=== PATIENT | male | born 1945 | race Hispanic/Latino ===

== ENCOUNTER 2018-08-04 10:58 | Emergency (ER) | payer MEDICARE ==
[2018-08-04 11:33] LABS: CREATININE 1.1 mg/dL (0.5-1.5); POTASSIUM 3.6 mmol/L (3.5-5.1)
[2018-08-04 11:39] LABS: ALBUMIN 4.6 g/dL (3.5-5.0); BILIRUBIN,TOTAL 0.7 mg/dL (0.2-1.0); TOTAL PROTEIN, SERUM 7.9 g/dL (6.0-8.3)
[2018-08-04 11:40] LABS: INR 0.92 (0.85-1.15); PARTIAL THROMBOPLASTIN TIME 28.1 SEC (26.3-35.5); PROTHROMBIN TIME 9.7 SEC (9.6-11.6)
[2018-08-04 11:44] LABS: CREATINE KINASE, TOTAL 40 U/L (21-232); MYOGLOBIN 47 ng/mL (10-92); TROPONIN I < 0.04 ng/mL (0.00-0.06)
[2018-08-04 11:47] LABS: BASOPHILS % (AUTO) 0.3 % (0.0-5.0); EOSINOPHILS % (AUTO) 0.3 % (0.0-8.0); HEMATOCRIT 46.5 % (42-54); LYMPHOCYTES % (AUTO) 16.5 % (21.0-51.0); MEAN CORPUSCULAR HEMOGLOBIN 30.8 pg (27.0-33.0); MEAN CORPUSCULAR VOLUME 90.4 fL (79-99); MONOCYTES % (AUTO) 6.5 % (3.0-13.0); NEUTROPHILS % (AUTO) 76.4 % (40.0-77.0); PLATELET COUNT (AUTO) 190 K/uL (130-400); RED BLOOD CELL COUNT(AUTO) 5.15 MIL/uL (4.50-6.20); RED CELL DISTRIBUTION WIDTH 13.4 % (11.0-15.5); WHITE BLOOD COUNT (AUTO) 8.4 K/uL (4.8-10.8)
== END 2018-08-04 12:52 | disposition home or self-care (01) ==
LOC: EDH 10:58
DX: R07.89 Other chest pain (principal); E78.5 Hyperlipidemia, unspecified; I10 Essential (primary) hypertension; Z87.891 Personal history of nicotine dependence; Z88.2 Allergy status to sulfonamides
CPT/HCPCS: 36415; 71045; 80053; 82550; 83874; 84484; 85025; 85610; 85730; 93005

== ENCOUNTER 2019-02-05 02:16 | Emergency (ER) | payer MEDICARE ==
[2019-02-05 03:04] LABS: BASOPHILS % (AUTO) 0.4 % (0.0-5.0); EOSINOPHILS % (AUTO) 2.5 % (0.0-8.0); HEMATOCRIT 38.6 % (42-54); LYMPHOCYTES % (AUTO) 33.1 % (21.0-51.0); MEAN CORPUSCULAR HEMOGLOBIN 31.3 pg (27.0-33.0); MEAN CORPUSCULAR HGB CONC 34.3 g/dL (32.0-36.0); MEAN CORPUSCULAR VOLUME 91.4 fL (79-99); MONOCYTES % (AUTO) 9.4 % (3.0-13.0); NEUTROPHILS % (AUTO) 54.6 % (40.0-77.0); PLATELET COUNT (AUTO) 169 K/uL (130-400); RED BLOOD CELL COUNT(AUTO) 4.22 MIL/uL (4.50-6.20); RED CELL DISTRIBUTION WIDTH 12.5 % (11.0-15.5); WHITE BLOOD COUNT (AUTO) 5.6 K/uL (4.8-10.8)
[2019-02-05 03:15] LABS: CREATININE 0.9 mg/dL (0.5-1.5); POTASSIUM 3.5 mmol/L (3.5-5.1)
[2019-02-05 03:19] LABS: ALBUMIN 3.9 g/dL (3.5-5.0); BILIRUBIN,TOTAL 0.4 mg/dL (0.2-1.0); TOTAL PROTEIN, SERUM 6.9 g/dL (6.0-8.3)
[2019-02-05 03:29] LABS: CREATINE KINASE, TOTAL 39 U/L (21-232); MYOGLOBIN 22 ng/mL (10-92); TROPONIN I < 0.04 ng/mL (0.00-0.06)
[2019-02-05] MEDS ORDERED: MECLIZINE HCL 25 MG TABLET ONE (03:32)
[2019-02-05] MEDS ORDERED: SODIUM CHLORIDE 0.9% 1000ML 1,000 ML IV ONE (03:32)
== END 2019-02-05 05:47 | disposition home or self-care (01) ==
LOC: EDH 02:16
DX: H81.10 Benign paroxysmal vertigo, unspecified ear (principal); I10 Essential (primary) hypertension; E11.9 Type 2 diabetes mellitus without complications; I25.10 Atherosclerotic heart disease of native coronary artery without angina pectoris; E78.5 Hyperlipidemia, unspecified; Z88.2 Allergy status to sulfonamides; Z90.49 Acquired absence of other specified parts of digestive tract
CPT/HCPCS: 36415; 80053; 82550; 83874; 84484; 85025; 93005; 96360; 96361; 99285; J7030

== ENCOUNTER 2019-11-22 10:37 | Observation (INO) | payer MEDICARE ==
[~2019-11-22] VITALS: Ht 172.7 cm; Wt 65.8 kg
[2019-11-22] MEDS ORDERED: ASPIRIN 325 MG TABLET ONE (10:56)
[2019-11-22 11:22] LABS: CREATININE 0.9 mg/dL (0.5-1.5); POTASSIUM 3.8 mmol/L (3.5-5.1)
[2019-11-22 11:23] LABS: BASOPHILS % (AUTO) 0.3 % (0.0-5.0); EOSINOPHILS % (AUTO) 1.4 % (0.0-8.0); HEMATOCRIT 39.7 % (42-54); LYMPHOCYTES % (AUTO) 23.8 % (21.0-51.0); MEAN CORPUSCULAR HEMOGLOBIN 30.2 pg (27.0-33.0); MEAN CORPUSCULAR HGB CONC 34.3 g/dL (32.0-36.0); MONOCYTES % (AUTO) 9.1 % (3.0-13.0); NEUTROPHILS % (AUTO) 65.1 % (40.0-77.0); PLATELET COUNT (AUTO) 207 K/uL (130-400); RED BLOOD CELL COUNT(AUTO) 4.51 MIL/uL (4.50-6.20); RED CELL DISTRIBUTION WIDTH 12.4 % (11.0-15.5); WHITE BLOOD COUNT (AUTO) 6.3 K/uL (4.8-10.8)
[2019-11-22 11:27] LABS: ALBUMIN 4.4 g/dL (3.5-5.0); BILIRUBIN,TOTAL 0.7 mg/dL (0.2-1.0); TOTAL PROTEIN, SERUM 7.5 g/dL (6.0-8.3)
[2019-11-22 11:33] LABS: B-TYPE NATRIURETIC PEPTIDE 15 pg/mL (0-100)
[2019-11-22 11:52] LABS: APPEARANCE,URINE CLEAR (CLEAR); BILIRUBIN,URINE NEGATIVE (NEGATIVE); COLOR,URINE YELLOW (YELLOW); GLUCOSE, URINE (UA) 500 mg/dL (NEGATIVE); KETONES,URINE NEGATIVE (NEGATIVE); LEUKOCYTE ESTERASE ,URINE NEGATIVE (NEGATIVE); NITRATE,URINE NEGATIVE (NEGATIVE); OCCULT BLOOD,URINE NEGATIVE (NEGATIVE); PROTEIN,URINE NEGATIVE (NEGATIVE); UROBILINOGEN,URINE 0.2 mg/dL (0.2-1.0)
[2019-11-22 12:49] LABS: BACTERIA,URINE Rare /HPF (None Seen); RBC,URINE None Seen /HPF (0-1); SQUAMOUS EPITHELIAL CELL,UR None Seen /HPF (0-2); WBC,URINE None Seen /HPF (0-1)
[2019-11-22 13:18] LABS: INR 0.88 (0.85-1.15); PARTIAL THROMBOPLASTIN TIME 28.3 SEC (26.3-35.5); PROTHROMBIN TIME 9.6 SEC (9.6-11.6)
[2019-11-22] MEDS ORDERED: NITROGLYCERIN 1GM/1 INCH PACKET TD ONE (14:36)
[2019-11-22 20:19] LABS: CREATINE KINASE, TOTAL 72 U/L (21-232); MYOGLOBIN 26 ng/mL (10-92); TROPONIN I < 0.04 ng/mL (0.00-0.06)
[2019-11-22 22:34] VITALS: BP 147/57
[2019-11-23 05:39] LABS: HEMATOCRIT 35.5 % (42-54); MEAN CORPUSCULAR HEMOGLOBIN 30.4 pg (27.0-33.0); MEAN CORPUSCULAR HGB CONC 34.4 g/dL (32.0-36.0); MEAN CORPUSCULAR VOLUME 88.5 fL (79-99); RED BLOOD CELL COUNT(AUTO) 4.01 MIL/uL (4.50-6.20); RED CELL DISTRIBUTION WIDTH 12.3 % (11.0-15.5); WHITE BLOOD COUNT (AUTO) 5.1 K/uL (4.8-10.8)
[2019-11-23 06:10] LABS: ALBUMIN 3.7 g/dL (3.5-5.0); BILIRUBIN,TOTAL 0.5 mg/dL (0.2-1.0); CREATININE 0.9 mg/dL (0.5-1.5); POTASSIUM 3.8 mmol/L (3.5-5.1); TOTAL PROTEIN, SERUM 6.6 g/dL (6.0-8.3)
[2019-11-23 06:38] VITALS: BP 138/63
[2019-11-23] MEDS ORDERED: ASPIRIN 81MG TAB.CHEW PO SCH (09:00)
[2019-11-23 11:46] VITALS: BP 142/59
[2019-11-23 16:00] VITALS: BP 137/56
--- NOTE | 2019-11-23 17:03 | NUR ---
cm note met with patient and states resides at home with spouse, independent with adls and ambulation. no dme. no services. dc plan is back home at [place]. no dc needs. Addendum: 11/23/19 at 1705 by TRISTIAN FUNG CM Amended: Links added.
--- NOTE | 2019-11-23 19:24 | NUR ---
Discharge education provided to pt in room. Emphasis on dx of chest pain, s/s to monitor for, when to seek emergency care and when to dial 911. Pt is to follow up with PCP Dr. Brady on next business day, and with Dr. Johnson in 2 weeks. Pt understands he must call to schedule appointments. Pt was instructed to continue all previous home medications. No new rx. PIV removed, tip intact. Dressed with sterile 2x2 and tape after hemostasis achieved. Telemetry discontinued. Pt dressed and awaiting arrival of family for transport home via private car. Pt to call when ready. Addendum: 11/23/19 at 1943 by HALEY LEYVA RN RN Pt escorted to [facility] by [facility] staff for transport home via private car. Pt in stable condition at time of discharge.
[2019-11-23] MEDS ORDERED: SITA1TAB6 PO (19:31)
[2019-11-23] MEDS ORDERED: LISI-613 PO (19:31)
[2019-11-23] MEDS ORDERED: AEC81 PO (19:32)
[2019-11-23] MEDS ORDERED: SIMV40TA59 PO (19:32)
[2019-11-23] MEDS ORDERED: GLIP10TA9 PO (19:33)
[2019-11-23] MEDS ORDERED: FAMO-136 PO (19:33)
[2019-11-23] MEDS ORDERED: PANT40TA25 PO (19:33)
== END 2019-11-23 19:35 | disposition home or self-care (01) ==
LOC: EDH 10:37 → EDHIP 14:27 → 3AH 21:06
PROVIDERS: ADMIT Internal Medicine; ATTEND Internal Medicine
DX: R07.89 Other chest pain (principal); I25.10 Atherosclerotic heart disease of native coronary artery without angina pectoris; I10 Essential (primary) hypertension; E78.5 Hyperlipidemia, unspecified; E11.9 Type 2 diabetes mellitus without complications; Z87.891 Personal history of nicotine dependence
CPT/HCPCS: 36415 ×2; 71045; 80053 ×2; 81001; 82550 ×2; 82948 ×4; 83874; 83880; 84484 ×3; 85025; 85027; 85610; 85730; 93005; 99291; G0378 ×11

== ENCOUNTER 2022-07-04 07:56 | Emergency (ER) | payer MEDICARE ==
[~2022-07-04] VITALS: Ht 175.3 cm; Wt 69.4 kg
[~2022-07-04 07:56] MED LIST: AEC81 PO; FAMO-136 PO; GLIP10TA9 PO; LISI20TA24 PO; PANT40TA55 PO; SIMV40TA59 PO; SITA1TAB6 PO
[2022-07-04] MEDS ORDERED: MECLIZINE HCL 25 MG TABLET PO STA (08:08)
[2022-07-04] MEDS ORDERED: LACTATED RINGERS 1000ML 1,000 ML IV ONE (08:30)
[2022-07-04 08:32] LABS: BASOPHILS % (AUTO) 0.4 % (0.0-5.0); EOSINOPHILS % (AUTO) 2.2 % (0.0-8.0); HEMATOCRIT 34.7 % (42-54); LYMPHOCYTES % (AUTO) 31.1 % (21.0-51.0); MEAN CORPUSCULAR HEMOGLOBIN 30.6 pg (27.0-33.0); MEAN CORPUSCULAR VOLUME 89.9 fL (79-99); MONOCYTES % (AUTO) 9.8 % (3.0-13.0); NEUTROPHILS % (AUTO) 56.3 % (40.0-77.0); PLATELET COUNT (AUTO) 174 K/uL (130-400); RED BLOOD CELL COUNT(AUTO) 3.86 MIL/uL (4.50-6.20); RED CELL DISTRIBUTION WIDTH 13.2 % (11.0-15.5); WHITE BLOOD COUNT (AUTO) 4.6 K/uL (4.8-10.8)
[2022-07-04 08:37] LABS: POTASSIUM 3.7 mmol/L (3.5-5.1)
[2022-07-04 08:42] LABS: ALBUMIN 3.9 g/dL (3.5-5.0); TOTAL PROTEIN, SERUM 6.9 g/dL (6.0-8.3)
[2022-07-04 08:48] LABS: B-TYPE NATRIURETIC PEPTIDE 19 pg/mL (0-100)
[2022-07-04 10:53] LABS: APPEARANCE,URINE CLEAR (CLEAR); BILIRUBIN,URINE NEGATIVE (NEGATIVE); COLOR,URINE LIGHT-YELLOW (YELLOW); GLUCOSE, URINE (UA) NEGATIVE (NEGATIVE); KETONES,URINE 10 mg/dL (NEGATIVE); LEUKOCYTE ESTERASE ,URINE NEGATIVE Leu/uL (NEGATIVE); NITRATE,URINE NEGATIVE (NEGATIVE); OCCULT BLOOD,URINE NEGATIVE (NEGATIVE); PROTEIN,URINE NEGATIVE (NEGATIVE); UROBILINOGEN,URINE 0.2 mg/dL (0.2-1.0)
[2022-07-04 10:55] LABS: RBC,URINE 0-1 /HPF (0-1); WBC,URINE 0-1 /HPF (0-1)
[2022-07-04] MEDS ORDERED: MECL-262 PO (11:41)
[2022-07-04 13:04] VITALS: BP 123/55
== END 2022-07-04 13:06 | disposition home or self-care (01) ==
LOC: EDH 07:56
DX: E86.0 Dehydration (principal); R42 Dizziness and giddiness; E11.9 Type 2 diabetes mellitus without complications; E78.00 Pure hypercholesterolemia, unspecified; I10 Essential (primary) hypertension; Z79.82 Long term (current) use of aspirin; Z79.899 Other long term (current) drug therapy; Z98.890 Other specified postprocedural states; Z88.2 Allergy status to sulfonamides; Z20.822 Contact with and (suspected) exposure to COVID-19
CPT/HCPCS: 99285; 82550; 84484; 80053; 83880; 85025; 82948; 81001; 36415; 87635; 71045; 70450; 96360; 96361; 93005; C9803; J7120

== ENCOUNTER 2023-01-04 16:57 | Emergency (ER) | payer MEDICARE ==
[~2023-01-04] VITALS: Ht 172.7 cm; Wt 68.0 kg
[~2023-01-04 16:57] MED LIST changes: +MECL-262 PO
[2023-01-04 17:19] LABS: BASOPHILS % (AUTO) 0.4 % (0.0-5.0); EOSINOPHILS % (AUTO) 1.9 % (0.0-8.0); HEMATOCRIT 34.3 % (42-54); LYMPHOCYTES % (AUTO) 23.8 % (21.0-51.0); MEAN CORPUSCULAR HEMOGLOBIN 30.6 pg (27.0-33.0); MEAN CORPUSCULAR HGB CONC 33.2 g/dL (32.0-36.0); MONOCYTES % (AUTO) 8.6 % (3.0-13.0); NEUTROPHILS % (AUTO) 64.9 % (40.0-77.0); PLATELET COUNT (AUTO) 148 K/uL (130-400); RED BLOOD CELL COUNT(AUTO) 3.73 MIL/uL (4.50-6.20); RED CELL DISTRIBUTION WIDTH 13.1 % (11.0-15.5); WHITE BLOOD COUNT (AUTO) 5.7 K/uL (4.8-10.8)
[2023-01-04 17:33] LABS: POTASSIUM 4.2 mmol/L (3.5-5.1)
[2023-01-04 17:43] LABS: ALBUMIN 4.3 g/dL (3.5-5.0); TOTAL PROTEIN, SERUM 7.4 g/dL (6.0-8.3)
[2023-01-04 20:16] LABS: APPEARANCE,URINE CLEAR (CLEAR); BILIRUBIN,URINE NEGATIVE (NEGATIVE); COLOR,URINE COLORLESS (YELLOW); GLUCOSE, URINE (UA) NEGATIVE (NEGATIVE); KETONES,URINE NEGATIVE (NEGATIVE); LEUKOCYTE ESTERASE ,URINE NEGATIVE Leu/uL (NEGATIVE); NITRATE,URINE NEGATIVE (NEGATIVE); OCCULT BLOOD,URINE NEGATIVE (NEGATIVE); PH,URINE 5.5 (5.0-8.0); PROTEIN,URINE NEGATIVE (NEGATIVE); UROBILINOGEN,URINE 0.2 mg/dL (0.2-1.0)
[2023-01-04 20:25] LABS: WBC,URINE 0-1 /HPF (0-1)
[2023-01-04 21:22] VITALS: BP 142/64
== END 2023-01-04 21:33 | disposition home or self-care (01) ==
LOC: EDH 16:57
DX: R55 Syncope and collapse (principal); E11.9 Type 2 diabetes mellitus without complications; E78.00 Pure hypercholesterolemia, unspecified; I10 Essential (primary) hypertension; Z79.82 Long term (current) use of aspirin; Z79.84 Long term (current) use of oral hypoglycemic drugs; Z88.2 Allergy status to sulfonamides; Z95.5 Presence of coronary angioplasty implant and graft
CPT/HCPCS: 36415; 71045; 80053; 81001; 84484; 85025; 93005

== ENCOUNTER 2025-04-06 17:56 | Emergency (ER) | payer MEDICARE, OTHER ==
[~2025-04-06] VITALS: Ht 172.7 cm; Wt 66.2 kg
[~2025-04-06 17:56] MED LIST changes: +GLIP10TA16 PO; -GLIP10TA9 PO
--- NOTE | 2025-04-06 18:12 | ERN ---
ED Note History of Present Illness Stated Complaint: DIZZY, ELEVATED BP Chief Complaint: Dizzy/Light Headed Time Seen by MD: 18:01 Dictation: PATIENT IS A 79-YEAR-OLD MALE COMING IN TODAY WITH HIS COMPLAINTS OF SITTING AND WATCHING TV AND HE HAD A SUDDEN ONSET OF DIZZINESS IN HIS BLOOD PRESSURE WENT UP AND HE FELT VERY STRANGE. NO NAUSEA VOMITING NO HEADACHE. HE STATES HE FELT LIKE THE ROOM WAS SPINNING, HIS TOOK HER BLOOD PRESSURE CUFF AND CHECKED HIM. HIS BLOOD PRESSURE WAS 208 SYSTOLIC. HE STATES COMING TO THE EMERGENCY ROOM, THE ONLY TIME HE FEELS IT IS WHEN HE GOES FROM A SITTING TO A STANDING POSITION. IN THE TRIAGE ROOM HE COMPLAINED OF THE SAME SENSATION WHEN HE STOOD UP. NIH IS 0 GAIT IS STEADY. STATES THIS IS HAPPENED IN THE PAST IN HIS DOCTOR TOLD HIM TO COOL GO TO THE EMERGENCY ROOM IF IT EVER HAPPENED AGAIN. Allergies: Coded Allergies: Sulfa (Sulfonamide Antibiotics) (Verified Allergy, Unknown, 11/22/19) Home Meds Active Scripts Meclizine HCl (Antivert) 25 Mg Tab.chew, 25 MG PO BID for 4 Days, #8 TAB.CHEW Prov:VENKAT ORR MD 07/04/22 Reported Medications Glipizide (Glipizide) 10 Mg Tablet, 10 MG PO BID, TAB 11/23/19 Famotidine (Pepcid) 20 Mg Tablet, 20 MG PO AD PRN for DYSPEPSIA, TAB 11/23/19 Pantoprazole Sodium (Protonix) 40 Mg Ectab, 40 MG PO AD PRN for DYSPEPSIA, TAB.EC 11/23/19 Simvastatin (ZOCOR) 40 Mg Tablet, 40 MG PO HS, TAB 11/23/19 Aspirin (ASPIRIN 81 MG ECTAB) 81 Mg Ectab, 81 MG PO DAILY, TAB.EC 11/23/19 Lisinopril (Lisinopril) 20 Mg Tablet, 20 MG PO AM, TAB 11/23/19 Sitagliptin Phos/Metformin HCl (Janumet 50-1,000 mg Tablet) 1 Each Tablet, 1 EACH PO BID, TAB 11/23/19 Past Medical History Past Medical History: Diabetes-Type II, High Cholesterol, Heart Disease, Hypertension, Other Additional Past Medical Hx: VERTIGO Surgical History: None Surgical History Other: HEART STENT Social History: Negative, Lives with family RN Note Reviewed/Agreed w/PFSH: Yes Review of System Dictation CONSTITUTIONAL: NEGATIVE EXCEPT FOR HPI HEAD/FACE: NEGATIVE EXCEPT FOR HPI EENT: NEGATIVE EXCEPT FOR HPI RESPIRATORY: NEGATIVE EXCEPT FOR HPI GASTROINTESTINAL/ABDOMINAL: NEGATIVE EXCEPT FOR HPI GENITOURINARY: NEGATIVE EXCEPT FOR HPI MUSCULOSKELETAL: NEGATIVE EXCEPT FOR HPI INTEGUMENTARY: NEGATIVE EXCEPT FOR HPI NEUROLOGICAL/PSYCH: NEGATIVE EXCEPT FOR HPI DIZZINESS/VERTIGO HEMATOLOGIC/LYMPHATIC: NEGATIVE EXCEPT FOR HPI ALL SYSTEMS NEGATIVE, EXCEPT NOTED ABOVE. 13 POINT REVIEW OF SYSTEMS ASSESSED AND ALL NEGATIVE EXCEPT FOR ABOVE. Initial Vital Sign VS Vital Signs Date Time Temp Pulse Resp B/P (MAP) Pulse Ox O2 Delivery O2 Flow Rate FiO2 04/06/25 17:57 97.9 79 16 150/52 97 Room Air 0 Physical Exam Dictation VITAL SIGNS REVIEWED GENERAL APPEARANCE: ALERT, ORIENTED X 3, NO ACUTE DISTRESS, WELL DEVELOPED, NOURISHED. 0/10 PAIN HEAD AND FACE: NON-TRAUMATIC. EYES: PERRL, PINK CONJUNCTIVAS, EYELID NO TRAUMA, ANTERIOR CHAMBER WITH ARCUS SENILIS. EARS: PINNAS INTACT AND NO SIGNS OF TRAUMA OR ERYTHEMA EAR CANALS CLEAR AND NO DISCHARGE TM NO ERYTHEMA NOSE: NO DISCHARGE, NO BLEEDING. OROPHARYNX: MOUTH NORMAL, TONGUE PINK, PHARYNX CLEAR,NO ERYTHEMA, TONSILS NO EXUDATES, NO ABSCESSES NOTED, MUCOUS MEMBRANE MOIST NECK: SUPPLE, NON-TENDER, NO THYROMEGALY, NO MASSES, NO JVD, NO BRUITS BREAST:DEFERRED CHEST:NO TENDERNESS, NO CREPITUS, NO PARADOXICAL MOVEMENT, NO RETRACTIONS LUNGS:CLEAR, WELL-VENTILATED, SYMMETRIC, NO RALES, NO WHEEZING, NO RHONCHI, NO STRIDOR, GOOD BREATH SOUNDS BILATERALLY HEART: REGULAR RATE, REGULAR RHYTHM, NO MURMUR, NO GALLOPS VASCULAR: NO PERIPHERAL EDEMA, ABDOMEN: SOFT, POSITIVE BOWEL SOUNDS, NONDISTENDED, NO GUARDING, NONTENDER, NO REBOUND, NO MASSES NO HEPATOMEGALY, NO SPLENOMEGALY, NO COLE'S SIGN, NO HERNIAS. RECTAL: DEFERRED GENITAL: DEFERRED NEUROLOGICAL: NORMAL SPEECH, MOTOR FUNCTION INTACT, SENSORY FUNCTION INTACT NIH IS 0 MUSCULOSKELETAL: NECK NONTENDER, FULL RANGE OF MOTION, BACK NONTENDER, FULL RANGE OF MOTION, EXTREMITIES: NONTENDER, FULL RANGE OF MOTION SKIN: COLOR PINK, DRY, NO TURGOR, NO RASH, NO LACERATIONS, NO ABRASIONS, NO CONTUSIONS. LYMPHATIC: DEFERRED Results (Laboratory/Radiology) Laboratory/Radiology Laboratory Tests Test 04/06/25 18:25 White Blood Count 4.9 K/uL (4.8-10.8) Red Blood Count 3.66 MIL/uL (4.50-6.20) L Hemoglobin 11.2 g/dL (14.0-18.0) L Hematocrit 33.8 % (42-54) L Mean Corpuscular Volume 92.3 fL (79-99) Mean Corpuscular Hemoglobin 30.6 pg (27.0-33.0) Mean Corpuscular Hemoglobin Concent 33.1 g/dL (32.0-36.0) Red Cell Distribution Width 12.9 % (11.0-15.5) Platelet Count 166 K/uL (130-400) Mean Platelet Volume 10.2 fL (7.5-10.5) Immature Granulocyte % (Auto) 0.2 % (0-1) Neutrophils (%) (Auto) 62.5 % (40.0-77.0) Lymphocytes (%) (Auto) 26.5 % (21.0-51.0) Monocytes (%) (Auto) 8.4 % (3.0-13.0) Eosinophils (%) (Auto) 2.2 % (0.0-8.0) Basophils (%) (Auto) 0.2 % (0.0-5.0) Neutrophils # (Auto) 3.1 K/uL (1.8-7.7) Lymphocytes # (Auto) 1.3 K/uL (1.0-4.8) Monocytes # (Auto) 0.4 K/uL (0.1-1.0) Eosinophils # (Auto) 0.11 K/uL (0.00-0.70) Basophils # (Auto) 0.01 K/uL (0.00-0.20) Absolute Immature Granulocyte (auto 0.01 K/uL (0-1) Nucleated Red Blood Cells 0.0 % (0.0-0.19) Sodium Level 139 mmol/L (136-145) Potassium Level 4.3 mmol/L (3.5-5.1) Chloride Level 103 mmol/L (101-111) Carbon Dioxide Level 26 mmol/L (21-32) Blood Urea Nitrogen 19 mg/dL (7-18) H Creatinine 0.9 mg/dL (0.5-1.3) Glomerular Filtration Rate Calc 87 mL/min (>90) Random Glucose 84 mg/dL (70-105) Total Calcium 9.0 mg/dL (8.5-10.1) Magnesium Level 2.30 mg/dL (1.80-2.40) Troponin I High Sensitivity 25 ng/L (4-75) EXAM: CT Head Without IV contrast. CLINICAL HISTORY: ACUTE ONSET OF DIZZINESS APPROXIMATE1 HOUR PRIOR TO ARRIVAL TECHNIQUE: Axial computed tomography images of the head/brain without intravenous contrast. COMPARISON: None provided. 07/04/2022. FINDINGS: BRAIN: No acute bleed or infarct. Stable mild chronic ischemic and atrophic changes. VENTRICLES: No hydrocephalus. ORBITS: The orbits are unremarkable. SINUSES AND MASTOIDS: The paranasal sinuses and mastoid air cells are clear. BONES: No fracture. SOFT TISSUES: Unremarkable. IMPRESSION: No acute bleed or infarct. Stable mild chronic ischemic and atrophic changes. /[place] XR Chest, 1 View. CLINICAL HISTORY: 78-day-old male chest pain. COMPARISON: XR Chest 01/04/23 17:20 FINDINGS: LUNGS: The lungs are clear. No consolidation. PLEURAL SPACES: No pleural effusion or pneumothorax. HEART: The heart size is normal. BONES: No acute osseous abnormality. IMPRESSION: 1. No acute findings. 2. Similar to prior XR Chest 01/04/23 17:20 /[facility] Labs Reviewed?: Yes EKG: (+) NSR EKG Comment: EKG normal sinus rhythm/heart rate 75/axis normal/no ectopy ED Course ED Course Orders Procedure Category Date Status Time Orthostatic Vital CPOE 04/06/25 Transmitted Signs 18:09 Ct Head/Brain W/O CT 04/06/25 Resulted Contrast 18:09 Cbc With Differential LAB 04/06/25 Complete 18:09 Chest 1vw RAD 04/06/25 Resulted 18:09 12 Lead Ekg Tracing- EKG 04/06/25 Complete Technical 18:09 Magnesium LAB 04/06/25 Complete 18:09 Troponin I High LAB 04/06/25 Complete Sensitivity 18:09 Basic Metabolic Panel LAB 04/06/25 Complete 18:09 Vital Signs Date Time Temp Pulse Resp B/P (MAP) Pulse Ox O2 Delivery O2 Flow Rate FiO2 04/06/25 17:57 97.9 79 16 150/52 97 Room Air 0 2102/patient remains NIH of 0. Gait is steady to the triage to room were I discussed the findings to include CT, labs, EKG, troponin, chest x-ray. He is aware there no significant findings and does not wish to stay in the hospital. He states the dizziness is transient. He wishes to be referred to a neurologist for follow up. at bedside and all questions answered HEART Score Response (Comments) Value History: Low suspicion (0) 0 Age: > 65yrs (+2) 2 Risk Factors: 1-2 risk factors (+1) 1 Initial Troponin: Normal limit (0) 0 Total 3 Medical Decision Making MDM MDM: Differential diagnosis: Positional vertigo/labyrinthitis/CVA/ACS/arrhythmia/electrolyte imbalance/dehydration/pneumonia/anxiety Rationale: Tests considered and ordered secondary to shared decision making include: EKG/labs/radiology Previous outside records reviewed: Old ER visits. Risk of complication and/or morbidity or mortality of patient management: None Medications-Per medication reconciliation Need for hospitalization: Patient does not meet criteria for hospitalization. None Need for emergency major/minor surgery: No There are no social concerns with this patient. Prescription drug management none Prescriptions will include symptomatic care Patient's prior external medical records from other ER visits were reviewed by me as indicated. Prior testing and results from previous visits were reviewed. Prior tests were taken into account with medical decision making and resource utilization, independent historian/historians were used to obtain complete medical history. I independently interpreted the test that were performed, results were reviewed by me and considered findings on radiology if ordered. Medical management and examination interpretation discussions were had by me with other qualified healthcare professionals as indicated for the patient's care. DX & DISP Disposition: Discharge Departure Impression: Primary Impression: Dizziness Additional Impressions: Chronic anemia, Mild dehydration Condition: Stable Additional Instructions: Follow-up with primary care provider in 1 to 2 days. Take medications as directed here in the emergency room. Okay to continue home medications unless otherwise discussed during your visit in the emergency room today. Return to your nearest emergency room if symptoms worsen or if there is no improvement. Call 911 if you need immediate assistance. Take Tylenol or Motrin [id number] as needed and if no contraindications are present. Increase oral hydration. A wound culture or urine culture was ordered here in the emergency room department please follow-up with primary care provider and advise them to get repeat ports from our facility. If you had any Gilberto wrap/splints that were applied here, please do not remove them until you see your primary care or specialty. Increase your fluid intake. Follow up with neurologist in the next 1-2 days, call for an appointment. See your primary care doctor for referral if you have any difficulty getting into see a neurologist. Referrals: KARELY MUSA MD (PCP) GUNNAR THOMAS MD Time of Disposition: 21:05 I have reviewed the case, and I agree with, Diagnosis and Plan ESTEE CHRISTINA NP Apr 06, 2025 18:12
--- NOTE | 2025-04-06 18:23 | EKG ---
[facility] Test Date: 2025-04-06 Test Time: 18:17:22 Pat Name: PRIMO ORDONEZ Department: ED Room: Gender: M Delivery Table Operator: [id number] : 1945 Requested By: ESTEE CHRISTINA Order Number: [id number] Reading MD: Francheska Daly Measurements Intervals [place] Rate: 75 P: 72 CA: 176 QRS: 39 QRSD: 84 T: 63 QT: 351 QTc: 391 Interpretive Statements Sinus rhythm Compared to ECG 01/04/2023 17:04:44 Ventricular premature complex(es) no longer present Electronically Signed On 04-07-2025 16:11:33 CDT by Francheska Daly Please click the below link to view image of tracing.
[2025-04-06 18:33] LABS: IMMATURE GRANULOCYTE ABSOLUTE 0.01 K/uL (0-1); NUCLEATED RED BLOOD CELLS 0.0 % (0.0-0.19); PLATELET COUNT (AUTO) 166 K/uL (130-400); RED BLOOD CELL COUNT(AUTO) 3.66 MIL/uL (4.50-6.20); RED CELL DISTRIBUTION WIDTH 12.9 % (11.0-15.5); WHITE BLOOD COUNT (AUTO) 4.9 K/uL (4.8-10.8)
[2025-04-06 18:38] LABS: CREATININE 0.9 mg/dL (0.5-1.3); GLOMERULAR FILTR. RATE CALC 87.0 mL/min (>90); GLUCOSE,RANDOM 84.0 mg/dL (70-105); SODIUM SERUM 139.0 mmol/L (136-145); UREA NITROGEN, BLOOD 19.0 mg/dL (7-18)
--- NOTE | 2025-04-06 18:45 | HMCIMG ---
EXAM: CT Head Without IV contrast. CLINICAL HISTORY: ACUTE ONSET OF DIZZINESS APPROXIMATE1 HOUR PRIOR TO ARRIVAL TECHNIQUE: Axial computed tomography images of the head/brain without intravenous contrast. COMPARISON: None provided. 07/04/2022. FINDINGS: BRAIN: No acute bleed or infarct. Stable mild chronic ischemic and atrophic changes. VENTRICLES: No hydrocephalus. ORBITS: The orbits are unremarkable. SINUSES AND MASTOIDS: The paranasal sinuses and mastoid air cells are clear. BONES: No fracture. SOFT TISSUES: Unremarkable. IMPRESSION: No acute bleed or infarct. Stable mild chronic ischemic and atrophic changes. /[place]
--- NOTE | 2025-04-06 18:52 | HMCIMG ---
EXAM: XR Chest, 1 View. CLINICAL HISTORY: 78-day-old male chest pain. COMPARISON: XR Chest 01/04/23 17:20 FINDINGS: LUNGS: The lungs are clear. No consolidation. PLEURAL SPACES: No pleural effusion or pneumothorax. HEART: The heart size is normal. BONES: No acute osseous abnormality. IMPRESSION: 1. No acute findings. 2. Similar to prior XR Chest 01/04/23 17:20 /[place]
--- NOTE | 2025-04-06 21:19 | NUR ---
ORTHO VITALS SEATED 150/61 HR 62 STANDING 153/68 HR 71
[2025-04-06 21:20] VITALS: BP 150/61; PULSE 62; RESP 16; TEMP 98.1; O2SAT 98
== END 2025-04-06 21:28 | disposition home or self-care (01) ==
LOC: EDH 17:56
DX: R42 Dizziness and giddiness (principal); E86.0 Dehydration; D64.9 Anemia, unspecified; E11.9 Type 2 diabetes mellitus without complications; E78.00 Pure hypercholesterolemia, unspecified; I11.9 Hypertensive heart disease without heart failure; Z79.82 Long term (current) use of aspirin; Z79.84 Long term (current) use of oral hypoglycemic drugs; Z88.2 Allergy status to sulfonamides; Z95.5 Presence of coronary angioplasty implant and graft
CPT/HCPCS: 36415; 70450; 71045; 80048; 83735; 84484; 85025; 93005; 99284